=== PATIENT | male | born 1995 | race Two or more races ===

== ENCOUNTER 2017-10-11 12:16 | Emergency (ER) | payer OTHER ==
[~2017-10-11] VITALS: Ht 180.3 cm; Wt 78.0 kg
[2017-10-11 13:56] LABS: Urine Bacteria NONE SEEN /hpf (None Seen); Urine Blood 2+ /uL (Negative); Urine Mucus FEW (None Seen); Urine Specific Gravity 1.034 (1.001-1.035); Urine WBC 4 /hpf (0 - 3)
[2017-10-11 14:19] LABS: Basophils # (auto) 0 uL; Basophils % (auto) 0.5 % (0.0-2.0); Eosinophils # (auto) 0 uL; Eosinophils % (auto) 0.1 % (0.0-7.0); Hematocrit 47.5 % (41.0-53.0); Hemoglobin 16.5 g/dL (13.5-17.5); Lymphocytes # (auto) 1.4 uL; Lymphocytes % (auto) 14.8 % (10.0-50.0); Mean Corpuscular Hemoglobin 29.9 pg (28.0-32.0); Mean Corpuscular Hgb Conc. 34.7 g/dL (32.0-36.0); Mean Corpuscular Volume 86.1 fL (80.0-100.0); Monocytes # (auto) 0.5 uL; Monocytes % (auto) 4.8 % (0.0-12.0); Neutrophils # (auto) 7.6 uL; Neutrophils % (auto) 79.8 % (37.0-80.0); Nucleated Red Blood Cells % 0.1 %; Platelet Count (auto) 223 10^3/uL (140-450); Red Blood Cells 5.52 10^6/uL (4.5-5.90); Red Cell Distribution Width 13.3 % (11.8-14.3); White Blood Cell 9.5 10^3/uL (4.4-10.8)
[2017-10-11 14:42] LABS: Albumin 4.4 g/dL (3.4-5.0); Bilirubin, Total 1.1 mg/dL (0.2-1.0); Calcium 9.1 mg/dL (8.5-10.1); Potassium 3.9 mmol/L (3.5-5.1); Total Protein 7.7 g/dL (6.4-8.2)
[2017-10-11] MEDS ORDERED: SODIUM CHLORIDE 0.9% 1,000 ML IVB ONE (15:56)
[2017-10-11] MEDS ORDERED: TAMSULOSIN HYDROCHLORIDE 0.4 MG CAP PO ONE (16:00)
[2017-10-11] MEDS ORDERED: METOCLOPRAMIDE HCL 5MG/ml INJ 2ml VIAL IV ONE (16:00)
[2017-10-11] MEDS ORDERED: KETOROLAC TROMETH 30 MG/ML 1ML VIAL IV ONE (16:00)
[2017-10-11 17:30] VITALS: BP 99/54
== END 2017-10-11 18:10 ==
LOC: ER 12:16
DX: N13.9 Obstructive and reflux uropathy, unspecified (principal); N20.1 Calculus of ureter; R19.7 Diarrhea, unspecified
CPT/HCPCS: 36415; 74176; 80053; 81001; 85025; 96361; 96374; 96375; 99285; J1885; J2765; J7030